=== PATIENT | male | born 2000 ===

== ENCOUNTER 2025-10-06 14:42 | Outpatient (CLI) | payer SELFPAY ==
--- NOTE | ~2025-10-06 | XR_ITS ---
EXAMINATION: XR chest 2V, 10/06/2025 15:00 [facility] HISTORY: Positive Quantiferon COMPARISON: No comparisons available. Technique: 2 views obtained. Findings: The lungs are clear, no effusion. No pneumothorax. Heart is normal size. Mediastinal and hilar contours are within normal limits. Bony thorax no acute abnormality. Impression: No evidence of active TB Reviewed, dictated and finalized at location [facility] Impression: No evidence of active TB
== END 2025-10-06 14:43 | disposition home or self-care (01) ==
DX: R76.12 Nonspecific reaction to cell mediated immunity measurement of gamma interferon antigen response without active tuberculosis (principal)
CPT/HCPCS: 71046